=== PATIENT | female | born 1960 | race Asian ===

== ENCOUNTER 2022-09-26 11:17 | Outpatient (CLI) | payer BC, SELFPAY ==
--- NOTE | 2022-09-26 11:30 | CRLHL7_ITS ---
For Patients: As a result of the Century Cures Act, medical imaging exams and procedure reports are released immediately into your electronic medical record. You may view this report before your referring provider. If you have questions, please contact your health care provider. BILATERAL SCREENING MAMMOGRAM WITH COMPUTER-AIDED DETECTION AND TOMOSYNTHESIS TECHNIQUE: CC and MLO views were obtained. These mammographic images have been obtained using full-field digital technique. These mammographic images were interpreted with the benefit of computer-aided detection. Breast Tomosynthesis was used in this interpretation. COMPARISON FILM: 02/04/21, 01/23/20, 01/16/19. FINDINGS: The breasts are extremely dense, which lowers the sensitivity of mammography. IMPRESSION: There is no radiographic evidence for malignancy. ASSESSMENT: BI-RADS Category 2: Benign RECOMMENDATION: Routine screening mammogram in 1 year. A lay language report of this examination will be provided to the patient. Haroldo Dia M.D. Diagnostic Radiologist [email or web address] Transcribed: 12:59 p.m. PT/Dictated by: Haroldo Dia MD @ 09/27/2022 11:58:00 AM (Electronically Signed)
== END 2022-09-26 11:18 | disposition home or self-care (01) ==
LOC: MAMMO 11:18
PROVIDERS: PCP Internal Medicine; Visit Provider Internal Medicine
DX: Z12.31 Encounter for screening mammogram for malignant neoplasm of breast (principal); R92.2 Inconclusive mammogram
CPT/HCPCS: 77063; 77067

== ENCOUNTER 2022-09-28 08:50 | Outpatient (CLI) | payer BC, SELFPAY | END 2022-09-28 08:51 | disposition home or self-care (01) | LOC: NFLDREF 20:45 | PROVIDERS: PCP Internal Medicine; Referring Provider Internal Medicine; Visit Provider Internal Medicine | DX: E78.5 Hyperlipidemia, unspecified (principal); Z13.89 Encounter for screening for other disorder | CPT/HCPCS: 80061; 87086 ==

== ENCOUNTER 2022-10-10 08:31 | Outpatient (CLI) | payer BC, SELFPAY | END 2022-10-10 08:32 | disposition home or self-care (01) | LOC: NFLDREF 08:33 | PROVIDERS: PCP Internal Medicine; Visit Provider Internal Medicine | DX: Z00.00 Encounter for general adult medical examination without abnormal findings (principal); E78.9 Disorder of lipoprotein metabolism, unspecified; E78.5 Hyperlipidemia, unspecified; C91.10 Chronic lymphocytic leukemia of B-cell type not having achieved remission; M81.0 Age-related osteoporosis without current pathological fracture | CPT/HCPCS: 82306 ==

== ENCOUNTER 2023-11-27 10:05 | Outpatient (CLI) | payer BC, SELFPAY ==
--- OUTSIDE RECORDS SUMMARY | 2023-11-27 10:10 | XMS_ITS | Encounter Summary ---
Author Organization [facility] Address [address] [place] [address] Care Team Providers Care Timing Adjuster Name Role Phone Elsewhere, Pcp Primary Care Provider Unavailabl e Reason for Referral * Outpatient (Routine) - Authorized Specialty Diagnoses / Procedures Referred By Contac t Referred To Contact Hematology Oncology Elbert Keenan M.B.B.S. [address] [place] [phone] [facility] Referral ID Status Reason Start Date Expiration Date V isits Requested Visits Authorized [id number] Authorized 11/20/2023 05/21/2025 1 1 Reason for Visit * Outpatient (Routine) - Closed Specialty Diagnoses / Procedures Referred By Contac t Referred To Contact Hematology Oncology Elbert Keenan M.B.B.S. [address] [place] [phone] [facility] Referral ID Status Reason Start Date Expiration Date Visits Re quested Visits Authorized [id number] Closed 07/10/2023 07/09/2026 1 1 Encounter Details Date Type Department Care Team ([facility] st Contact Info) Description 11/20/2023 2:30 PM CDT Office Visit Division of Hematology in [place], [place] [address] [place] [phone] Elbert Keenan M.B.B.S. 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 No 02/05/2023 Within the last year, have y ou been humiliated or emotionally abused in other ways by your partner or ex-partner? No Within the last year, have y ou been kicked, hit, slapped, or otherwise physically hurt by your partner or ex-partner? No 02/05/2023 Within the last year, have y ou been raped or forced to have any kind of sexual activity by your partner or ex-partner? No 02/05/2023 Social Connection and Isolat ion Panel [NHANES] Answer Date Recorded In a typical week, how many times do you talk on the phone with family, friends, or neighbors? More than three times a week 05/03/2021 How often do you get togethe r with friends or relatives? Patient declined 05/03/2021 How often do you attend chur or islam services? Never 05/03/2021 Do you belong to any clubs o r organizations such as advent groups, unions, fraternal or athletic groups, or school groups? No 05/03/2021 How often do you attend meet ings of the clubs or organizations you belong to? Never 05/03/2021 Are you , , di vorced, , never , or living with a partner? 05/03/2021 AUDIT-C Answer Date Recorded Q1: How often do you have a drink containing alc ohol? 2-4 times a month 05/03/2021 Q2: How many drinks containi ng alcohol do you have on a typical day when you are drinking? 1 or 2 05/03/2021 Q3: How often do you have si x or more drinks on one occasion? Never 05/03/2021 Overall Financial Resource Strain (CARDIA) Answe r Date Recorded How hard is it for you to pa y for the very basics like food, housing, medical care, and heating? Not hard at all 02/05/2023 PHQ-2 Answer Date Recorded PHQ-2 Score 0 02/13/2019 [facility] [place] [facility] Occupat ional Health - Occupational Stress Questionnaire Answer Date Recorded Do you feel stress - tense, restless, nervous, or anxious, or unable to sleep at night because your mind is troubled all the time - these days? Only a little 05/03/2021 Exercise Vital Sign Answer Date Recorde d On average, how many days pe r week do you engage in moderate to strenuous exercise (like a brisk walk)? 5 days 02/05/2023 On average, how many minutes do you engage in exercise at this level? 30 min 02/05/2023 Hunger Vital Sign Answer Date Recorded Within the past 12 months, y ou worried that your food would run out before you got the money to buy more. Never true 02/06/20 23 Within the past 12 months, t he food you bought just didn't last and you didn't have money to get more. Never true 02/05/2023 PRAPARE - Transportation Answer Date Re corded In the past 12 months, has l ack of transportation kept you from medical appointments or from getting medications? No 01/23 In the past 12 months, has l ack of transportation kept you from meetings, work, or from getting things needed for daily living? No 02/05/2023 Nutrition Answer Date Recorded On average, how many serving s of fruits and vegetables do you eat per day (serving size is equal to 1 cup or approximately the size of a tennis ball)? 3-5 02/05/2023 Dental Answer Date Recorded Dental: Regular Dentist Yes 06/22/20 Employment Answer Date Recorded Employment status Retired 02/05/2023 Housing Stability Answer Date Recorded What is your living situation today? I have a [facility] place to live 02/05/2023 Education Answer Date Recorded What is the highest level of school you have completed or the highest degree you have received? 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, [employer]) 02/10/2019 Sex and Gender Information Value Date Recorded Sex Assigned at Female 12/11/2017 12:03 PM CDT Gender Identity Female 12/11/2017 12:03 PM CDT Sexual Orientation Straight 12/11/2017 12 :03 PM CDT documented as of this encounter Last Filed Vital Signs Vital Sign Reading Time Taken Comments Blood Pressure 180/82 11/20/2023 2:22 PM CDT Pulse 92 11/20/2023 2:22 PM CDT Temperature 36.2 ??C (97.2 ??F) 11/20/2023 2:22 PM CD T Respiratory Rate - - Oxygen Saturation - - Inhaled Oxygen Concentration - - Weight 43.5 kg (95 lb 12.6 oz) 11/20/2023 2:22 P M CDT Height 152.9 cm (5' 0.2) 11/20/2023 2:22 PM CDT Body Mass Index 18.59 11/20/2023 2:22 PM CDT documented in this encounter Progress Notes * Elbert Keenan M.B.B.S. 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 CBC: Hemoglobin of 12.0, WBC 13.5 with 61% lymphocytes, platelets 247,000. Prior CBC in July 2008 was normal. January 2010 - Endometriosis evaluation at [facility]. CBC: Hemoglobin 13.0, WBC 14.2with 68% lymphocytes, platelets 231,000. February 07, 2010 - CT: Multiple soft tissue masses in the mesentery, retrocrural, retroperitoneal, and periportal regions--endometrial implants versus adenopathy. Mixed density lesions in bilateral adnexa left greater than right. February 17, 2010 - Flow cytometry: Clonal population of lymphocytes that were CD5+, CD23+, CD19+, and CD45+. Dim CD38, CD79b, and kappa light chains. CD38 dim and CD49d negative. February 25, 2010 - FISH: 11q- (47%) and 13q- (20%). ZAP-70 positive (29%). IgVH: Unmutated. April 19, 2010 - Hysteroscopy, exploratory laparotomy, bilateral salpingo oophorectomy, adhesiolysis, and ablation of endometriosis implants. Pathology: Bilateral endometrioid/ovarian adenofibromas(left 4.2 cm and right 2.8 cm). Also benign cervical and endometrial polyps. December 10, 2013 - Progressive CLL meeting criteria for treatment. ECOG 1912 consent signed. February 18, 2014 - Ibrutinib/Rituxan started (E1912). August 2018: She developed worsening lymphocytosis, with testing revealing the presence of BTK mutation. With this asymptomatic disease progression, she continued with ibrutinib. April 2021: Total WBC count increased to 91.2, hemoglobin was down to 10.8, and the platelet count was 210. Repeat assessment of the disease process showed worsening lymphadenopathy, and a repeat bone marrow aspirate and biopsy showed 90% involvement by CLL. CLL fish showed the presence of deletion 11q and deletion 13q; there was no TP53 mutation noted. She started therapy with venetoclax and obinutuzumab. She continued with ibrutinib overlap until July 13, 2021. INTERVAL HISTORY The patient returns to the clinic today with her . She reports that she spent approximately 2 months in [facility] [place]. She thankfully had no major infectious complications or other medical problemsduring this visit. He has no other symptoms to offer. Specifically, she denies any major infections, she was not hospitalized for any reason. OBJECTIVE Vitals: 11/20/23 1422 BP: (!) 180/82 Pulse: 92 Temp: 36.2 ??C Height: 152.9 cm Weight: 43.5 kg Body surface area is 1.36 meters squared. Current Outpatient Medications: alendronate (FOSAMAX) 70 mg tablet, Take 70 mg by mouth once a week., Disp: , Rfl: CALCIUM CARB/VIT D3/MINERALS (CALCIUM-VITAMIN D ORAL), Take 1 Dose by mouth daily. Calcium 1200mg +Vitamin D 800 IU, Disp: , Rfl: multivitamin capsule, Take 1 capsule by mouth daily., Disp: , Rfl: simvastatin (ZOCOR) 20 mg tablet, Take 20 mg by mouth at bedtime., Disp: , Rfl: valACYclovir (VALTREX) 1000 mg tablet, TAKE ONE TABLET BY MOUTH ONCE DAILY, Disp: 90 tablet, Rfl: 3 PHYSICAL EXAM General: ECOG performance status 0. Lymph node survey: No lymphadenopathy. Abdomen: No organomegaly. Lower extremities: No pedal edema. 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 Based on the patient's history, physical examination, laboratory parameters, she continues to be in a complete clinical remission at this time. I am very happy to see this. We will continue with monitoring the disease process every 4 months going forward. She knows thatshe can contact us anytime sooner with questions. #2 Supportive care for CLL She was seen by Dermatology locally recently. She also continues to see her primary care physician for the rest of her health care preventative needs. The patient is on valacyclovir at this time; I discussed that it would be reasonable for her to stop it 6 months have having completed her venetoclax treatment, that is in December 2023. 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) Expected: 03/22/2024 (Approximate), Expires: 02/19/2025 Creatinine with Estimated GFR Lab Routine 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) Expected: 03/22/2024 (Approximate), Expires: 02/19/2025 LD (Lactate Dehydrogenase) Lab Routine 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) Expected: 03/22/2024 (Approximate), Expires: 02/19/2025 Reticulocytes Lab Routine 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) Expected: 03/22/2024 (Approximate), Expires: 02/19/2025 Immunoglobulin G (IgG) Lab Routine 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) Expected: 03/22/2024 (Approximate), Expires: 02/19/2025 Scheduled Referrals Name Type Priority Associated Diagnoses Order Schedule Hematology office visit (clinic) [facility]; CLL; General Outpatient Referral Routine Expected: 03/22/2024 (Approximate), Expires: 02/19/2025 documented as of this encounter Visit Diagnoses Diagnosis 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
--- OUTSIDE RECORDS SUMMARY | 2023-11-27 10:10 | XMS_ITS | Encounter Summary ---
Author Organization [facility] Address [address] [place] [address] Care Team Providers Care Dining Room Supervisor Name Role Phone Unavailable Primary Care Provider Unavailabl e Encounter Details Date Type Department Care Team (Late st Contact Info) Description 10/11/2023 Specialty Pharmacy [facility] [address] [place] [phone] Brandy Kendrick, Pharm.D., R.Ph. [address] [place] [phone] Social History Tobacco Use Types Packs/Day Years Used Date Smoking Tobacco: Never Smokeless Tobacco: Never Alcohol Use Standard Drinks/Week Comments Yes 0 (1 standard drink = 0.6 oz pur e alcohol) Humiliation, Afraid, Rape, and Kick questionnair e [...] How often do you attend chur or shinto services? Never 05/03/2021 Do you belong to any clubs o r organizations such as christianity groups, unions, fraternal or athletic groups, or [...] Answer Date Recorded PHQ-2 Score 0 02/13/2019 [facility] of Occupat ional Health - Occupational Stress [...] money to buy more. Never true 02/06/20 Within the past 12 months, t he [...] your living situation today? I have a [facility] place to live 02/05/2023 Education Answer Date Recorded What is the highest level of school you have completed or the highest degree you have received? 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 - 10/11/2023 1:08 PM CDT [facility] Pharm[facility] service discontinued at this time. documented in this encounter Plan of Treatment Not on file documented as of this encounter Visit Diagnoses Not on filedocumented in this encounter Additional Health Concerns Infection Onset Date Last Indicated Resolved Time Protective Environment 09/29/2022 09/29/2022 Assessment Noted Time PHQ-9 Depression Total Score: 0 02/14/20 10:24 AM CDT documented as of this encounter
--- OUTSIDE RECORDS SUMMARY | 2023-11-27 10:10 | XMS_ITS | Clinical Summary ---
Author Organization [facility] Address [address] [place] [address] Care Team Providers Care Tub Wash Operator Name Role Phone Elsewhere, Pcp Primary Care Provider Unavailabl e Source Comments Patient records contain information from all sites at [facility]. For routine questions regarding patient records, call [phone] during business hours, M-F 8:00 AM - 5:00 PM Central Time. Record requests for emergency care only can be directed to [phone] at any time.[facility] Allergies No known active allergies Medications Medication Sig Dispensed Refills Start Date End Date Status CALCIUM CARB/VIT D3/MINERALS (CALCIUM-VITAMIN D ORAL) Take 1 Dose by mouth daily. Calcium 1200mg + Vitamin D 800 IU 10/28/2015 Active multivitamin capsule Take 1 capsule by mouth daily. Active alendronate (FOSAMAX) 70 mg tablet Take 70 mg by mouth once a week. 10/10/2022 Active simvastatin (ZOCOR) 20 mg tablet Take 20 mg by mouth at bedtime. 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 Take with a meal and water at the same time each day. Swallow whole, do not chew, crush, or break. 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 09/04/2023 9:50 AM CDT - 09/04/2023 11:59 PM CDT Hospital Encounter Department of Laboratory Medicine in [address] [address] Elbert Keenan M.B.B.S. 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) Discharge Disposition: Home or Self Care from Last 3 Months Immunizations Name Administration Dates Next Due Influenza Split 04/01/2012 Influenza, Injectable, Mdck, Preservative Free, Quadrivalent 05/13/2021,05/02/2018 Influenza, Unspecified 03/16/2009 RZV (SHINGRIX) 08/21/2018,03/07/2018 SARS-COV-2 (COVID-19) - MODERNA(Discontinued) 05/05/2021 Tdap 10/10/2022,01/26/2010 influenza vaccine quad (FLUZONE/FLUARIX) (6 months and older)(PF) 04/24/2023,05/03/2022,03/09/2020,2018,03/25/2013,04/04/2012,03/27/2011,0 03/21/2010 Family History Medical History Relation Name Comments Hyperlipidemia Brother Maverick Walton Coronary artery disease Father Gamaliel Walton Dementia Father Gamaliel Walton Hyperlipidemia Father Gamaliel Walton Hypertension Father Gamaliel Walton Clotting disorder Mother pawan walton Rheum arthritis Mother pawan walton Breast cancer Mother's Sister 1 Alysa Sansaya Lymphoma Mother's Sister 2 Lisa Usy Rheum arthritis Mother's Sister 3 Connie Gregoria Relation Name Status Comments Brother Maverick Walton Father Gamaliel Walton Mother sida saundra Mother's Sister 1 Alysa Sansaya Mother's Sister 2 Lisa Usy Mother's Sister 3 Connie Gregoria Social History Tobacco Use Types Packs/Day Years Used Date Smoking Tobacco: Never Passive Smoke Exposure: Never Smokeless Tobacco: Never Tobacco Cessation:Counseling Given: No Alcohol Use Standard Drinks/Week Comments Yes 0 [...] 05/03/2021 How often do you attend chur ch or faith services? Never 05/03/2021 Do you belong to any clubs o r organizations such as hoahaoism groups, unions, fraternal or athletic groups, or [...] Answer Date Recorded PHQ-2 Score 0 02/13/2019 [facility] - Occupational Stress [...] your living situation today? I have a [facility] place to live 02/05/2023 Education Answer Date Recorded What is the highest level of school you have completed or the highest degree you have received? 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 Concentration - - Weight 43.5 kg (95 lb 12.6 oz) 11/20/2023 2:22 P M CDT Height 152.9 cm (5' 0.2) 11/20/2023 2:22 PM CDT Body Mass Index 18.59 11/20/2023 2:22 PM CDT Plan of Treatment Health Maintenance Due Date Last Done Comments CT Colonography 1958 Cologuard 1958 FIT 1958 Pneumococcal vaccine (0-64 years) (1 of 2 - PCV) 1964 Mammogram 10/23/2017 10/23/2016 (Perf ormed elsewhere), 11/09/2015 (Performed elsewhere), 06/25/2015 (Performed elsewhere) Colonoscopy 06/25/2018 06/25/2008 (Perf ormed elsewhere) Colorectal Cancer Screening 06/25/2018 Cervical Cancer Screening 09/20/20192016 (Performed elsewhere) Lipid (Cholesterol) Screening 09/19/2021 09/19/2016 (Performed elsewhere) COVID-19 Vaccine ( season) 2023 03/19/2022, 05/05/2021, 10/08/2020, Additional history exists Depression Screening (Annual PHQ-2) 06/25/2023 Office Visit for Blood Pressure Check / Re-check 02/20/2024 11/20/2023 Fasting Glucose for Diabetes Screening 10/03/2024 10/03/2021, 09/05/2021, 08/08/2021, Additional history exists DTaP,Tdap,and Td Vaccines (3 - Td or Tdap) 10/10/2032 10/10/2022, 01/26/2010 Zoster Vaccines Completed 08/21/2018, 03/07/2018 Influenza Vaccine Completed 04/24/2023, , 05/13/2021, Additional history exists HPV Vaccines Aged Out No longer eligi ble based on patient's age to complete this topic Procedures Procedure Name Priority Date/Time Associated Diagnosis Comments IMMUNOGLOBULIN G (IGG), S Routine 11/16/2023 9:51 AM CDT 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) RETICULOCYTES, B Routine 11/16/2023 9:51 AM CDT 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) LACTATE DEHYDROGENASE (LD), S Routine 11/16/2023 9:51 AM CDT 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) CREATININE WITH EGFR, S/P Routine 11/16/2023 9:51 AM CDT 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) CBC WITH DIFFERENTIAL, B Routine 024 9:51 AM CDT 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) BILIRUBIN, TOT, S/P Routine 11/16/2023 9 :51 AM CDT 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) ASPARTATE AMINOTRANSFERASE (AST), S/P Routine 11/16/2023 9:51 AM CDT 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) ALKALINE PHOSPHATASE, S/P Routine 11/16/2023 9:51 AM CDT 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) CBC WITH DIFFERENTIAL, B Routine 024 9:59 AM CDT 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) COMPREHENSIVE METABOLIC PANEL, S/P Routine 10/03/2021 10:02 AM CDT 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) from Last 3 Months or Most Recently Relevant to Health Maintenance Results * Reticulocytes (11/16/2023 9:51 AM CDT) Reticulocytes, B 0.84 0.60 - 2.71 % 11/16/2023 1:13 PM CDT RDWG Absolute Reticulocyte 36.0 30.4 - 110.9 x10(9)/L 11/16/2023 1:13 PM CDT R[facility] Blood (Blood, Venous) 11/16/2023 9:51 AM CDT 11/16/2023 12:39 PM CDT Elbert Barrera LAB BLOOD ADD-O N [facility] [address] [place] [address], [facility] RDW[facility] [place] [address] [place] [address] * (ABNORMAL) CBC with Differential, Blood (11/16/2023 9:51 AM CDT) Only the most recent of2 resultswithin the time period is included. Hemoglobin 13.5 11.6 - 15.0 g/dL 11/16/2023 9:56 AM CDT CNFL Hematocrit 39.4 35.5 - 44.9 % 11/16/2023 9:56 AM CDT CNFL Erythrocytes 4.37 3.92 - 5.13 x10(12)/L 11/16/2023 9:56 AM CDT CNFL MCV 90.2 78.2 - 97.9 fL 11/16/2023 9:56 AM CDT CNFL RBC Distrib Width 10.9(L) 12.2 - 16.1 % 11/16/2023 9:56 AM CDT CNFL Platelet Count 162 157 - 371 x10(9)/L 11/16/2023 9:56 AM CDT CNFL Leukocytes 4.8 3.4 - 9.6 x10(9)/L 11/16/2023 9:56 AM CDT CNFL Neutrophils 2.90 1.56 - 6.45 x10(9)/L 11/16/2023 9:56 AM CDT CNFL Lymphocytes 1.46 0.95 - 3.07 x10(9)/L 11/16/2023 9:56 AM CDT CNFL Monocytes 0.39 0.26 - 0.81 x10(9)/L 11/16/2023 9:56 AM CDT CNFL Eosinophils 0.05 0.03 - 0.48 x10(9)/L 11/16/2023 9:56 AM CDT CNFL Basophils <0.04 0.01 - 0.08 x10(9)/L 11/16/2023 9:56 AM CDT CNFL Blood (Blood, Venous) 11/16/2023 9:51 AM CDT 11/16/2023 9:52 AM CDT Elbert EscobedoS. [place] [address], [place] [address] * AST (Aspartate Aminotransferase) (11/16/2023 9:51 AM CDT) Aspartate Aminotransferase (AST), P 30 8 - 43 U/L 11/16/2023 10:15 AM CDT CNFL Blood (Blood, Venous) 11/16/2023 9:51 AM CDT 11/16/2023 9:52 AM CDT Elbert EscobedoSRiccardo LAB BLOOD ADD-O N Performing Organization Address City/[facility]/[place] [address], [place] [address] * Alkaline Phosphatase (11/16/2023 9:51 AM CDT) Alkaline Phosphatase, P 58 35 - 104 U/L 11/16/2023 10:15 AM CDT CNFL Blood (Blood, Venous) 11/16/2023 9:51 AM CDT 11/16/2023 9:52 AM CDT Elbert EscobedoS. [place] [address], [place] [address] * (ABNORMAL) LD (Lactate Dehydrogenase) (11/16/2023 9:51 AM CDT) Lactate Dehydrogenase (LD), P 244(H) 122 - 222 U/L 11/16/2023 1:20 PM CDT R[facility] Blood (Blood, Venous) 11/16/2023 9:51 AM CDT 11/16/2023 12:39 PM CDT Elbert Barrera LAB BLOOD NON A DD-ON Performing Organization Address City/[facility]/ZIP Co de Phone Number [facility] [address] [place] [address], [facility] RDWG [facility] [place] [address] [place] [phone] * (ABNORMAL) Immunoglobulin G (IgG) (11/16/2023 9:51 AM CDT) Immunoglobulin G (IgG), S 373(L) 767 - 1590 mg/dL 11/20/2023 8:39 AM CDT ECLR Blood (Blood, Venous) 11/16/2023 9:51 AM CDT 11/16/2023 2:33 PM CDT Elbert Barrera LAB BLOOD ADD-O N Performing Organization Address City/[facility]/ZIP Co de Phone Number [facility] [address] [place] [address] ECLR [facility] [place] [address] * Creatinine with Estimated GFR (11/16/2023 9:51 AM CDT) Creatinine 0.77 0.59 - 1.04 mg/dL 11/16/2023 10:15 AM CDT CNFL Estimated GFR (eGFR) 86 >=60 mL/min/BSA 11/16/2023 10:15 AM CDT CNFL Comment: Estimated GFR calculated using the 2020 CKD_EPI creatinine equation. Blood (Blood, Venous) 11/16/2023 9:51 AM CDT 11/16/2023 9:52 AM CDT Elbert Barrera [place] [address], [facility] [place] [address] * Bilirubin, Total (11/16/2023 9:51 AM CDT) Bilirubin, Total, P 0.5 0.0 - 1.2 mg/dL 11/16/2023 10:15 AM CDT CNFL Blood (Blood, Venous) 11/16/2023 9:51 AM CDT 11/16/2023 9:52 AM CDT Elbert Barrera LAB BLOOD ADD-O N Performing Organization Address [facility]/ZIP Co de Phone Number [address] [address], [place] [address] * Comprehensive Metabolic Panel (10/03/2021 10:02 AM CDT) Potassium, P 4.4 3.6 - 5.2 mmol/L 10/03/2021 10:52 AM CDT CNFL Sodium, P 136 135 - 145 mmol/L 10/03/2021 10:52 AM CDT CNFL Chloride, P 101 98 - 107 mmol/L 10/03/2021 10:52 AM CDT CNFL Bicarbonate, P 23 22 - 29 mmol/L 10/03/2021 10:52 AM CDT CNFL Anion Gap, P 12 7 - 15 10/03/2021 10:52 AM CDT CNFL BUN (Blood Urea Nitrogen), P 16 6 - 21 mg/dL 10/03/2021 10:52 AM CDT CNFL Creatinine 0.84 0.59 - 1.04 mg/dL 10/03/2021 10:52 AM CDT CNFL eGFR-Black/ 86 >=60 mL/min/BS A 10/03/2021 10:52 AM CDT CNFL Comment: ----ADDITIONAL INFORMATION---- Estimated GFR calculated using the 2009 CKD_EPI creatinine equation. eGFR Non-Black/ 75 >=60 mL/min/BS A 10/03/2021 10:52 AM CDT CNFL Comment: ----ADDITIONAL INFORMATION---- Estimated GFR calculated using the 2009 CKD_EPI creatinine equation. Calcium, Total, P 9.4 8.8 - 10.2 mg/dL 10/03/2021 10:52 AM CDT CNFL Glucose, P 88 70 - 140 mg/dL 10/03/2021 10:52 AM CDT CNFL Protein, Total, P 6.5 6.3 - 7.9 g/dL 10/03/2021 10:52 AM CDT CNFL Albumin, P 4.3 3.5 - 5.0 g/dL 10/03/2021 10:52 AM CDT CNFL Aspartate Aminotransferase (AST), P 29 8 - 43 U/L 10/03/2021 10:52 AM CDT CNFL Alkaline Phosphatase, P 79 35 - 104 U/L 10/03/2021 10:52 AM CDT CNFL Alanine Aminotransferase (ALT), P 27 7 - 45 U/L 10/03/2021 10:52 AM CDT CNFL Bilirubin, Total, P 0.4 <=1.2 mg/dL 10/03/2021 10:52 AM CDT CNFL Blood (Blood, Venous) 10/03/2021 10:02 AM CDT 10/03/2021 10:03 AM CDT Layla Espinal P.A.-C., M.S. LAB BLOOD ADD-ON [facility] [address] [place] [address], [facility] CNFL [facility] in [address] [address] from Last 3 Months or Most Recently Relevant to Health Maintenance Additional Health Concerns Infection Onset Date Last Indicated Protective Environment 09/29/2022 3 Advance Directives For more information, please contact: [phone] Documents on File Type Date Recorded Patient Field Contact Technician Expl anation Advance Directives 07/15/2019 2:44 PM Heal th Care Directive Advance Directives 04/19/2010 12:00 AM Lauren glover document. See document viewer. Healthcare Agents on File Name Relationship Healthcare Agent Relationshi p Communication Zach Palencia Spouse Health Care Agent Haroldo Palencia First Alternate Health Care Agent Nish Palencia Second Alternate Health Care Agent Care Teams Tub Wash Operator Relationship Specialty Start Date End Date Elsewhere, Pcp PCP - General Internal Medicine 11/16/23
--- OUTSIDE RECORDS SUMMARY | 2023-11-27 10:10 | XMS_ITS | Referral Summary ---
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 For routine questions regarding patient records, call [phone] during business hours, M-F 8:00 AM - 5:00 PM Central Time. Record requests for emergency care only can be directed to [phone] at any time.[facility] Encounters Date Type Department Care Team Description 11/20/2023 2:30 PM CDT Office Visit Division of Hematology in [place], [place] [address] [place] [phone] Elbert Keenan M.B.B.S. 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 09/04/2023 9:50 AM CDT - 09/04/2023 11:59 PM CDT Hospital Encounter Department of Laboratory Medicine in [address] [phone] Elbert Keenan M.B.B.S. 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) Discharge Disposition: Home or Self Care from Last 3 Months Allergies No known active allergies Medications Medication [...] Date Anemia In Neoplastic Disease 07/12/2021 02/07/2023 Immunizations Name Administration Dates Next Due Influenza Split 04/01/2012 Influenza, Injectable, Mdck, Preservative Free, Quadrivalent 05/13/2021,05/02/2018 Influenza, Unspecified 03/16/2009 RZV (SHINGRIX) 08/21/2018,03/07/2018 SARS-COV-2 (COVID-19) - MODERNA(Discontinued) 05/05/2021 Tdap 10/10/2022,01/26/2010 influenza vaccine quad (FLUZONE/FLUARIX) (6 months and older)(PF) 04/24/2023,05/03/2022,03/09/2020,2018,03/25/2013,04/04/2012,03/27/2011,0 03/21/2010 Social History Tobacco Use Types Packs/Day Years [...] How often do you attend chur or mormonism services? Never 05/03/2021 Do you belong to any clubs o r organizations such as lutheran groups, unions, fraternal or athletic groups, or [...] Answer Date Recorded PHQ-2 Score 0 02/13/2019 [facility] - Occupational Stress Questionnaire Answer Date Recorded [...] your living situation today? I have a [facility] place to live 02/05/2023 Education Answer Date Recorded What is the highest level of school you have completed or the highest degree you have received? 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 Concentration - - Weight 43.5 kg (95 lb 12.6 oz) 11/20/2023 2:22 P M CDT Height 152.9 cm (5' 0.2) 11/20/2023 2:22 PM CDT Body Mass Index 18.59 11/20/2023 2:22 PM CDT Plan of Treatment Not on file Procedures Procedure Name Priority Date/Time Associated Diagnosis [...] CDT Elbert Barrera LAB BLOOD ADD-O N [facility] [address] [place] [address], [facility] RDWG [facility] in [place] [address] [place] [address] * (ABNORMAL) CBC with Differential, Blood (11/16/2023 [...] CDT Elbert Barrera [place] [address], [place] [address] * AST (Aspartate Aminotransferase) (11/16/2023 9:51 AM CDT) Aspartate Aminotransferase (AST), P 30 8 - 43 U/L 11/16/2023 10:15 AM CDT CNFL Blood (Blood, Venous) 11/16/2023 9:51 AM CDT 11/16/2023 9:52 AM CDT Elbert EscobedoSRiccardo LAB BLOOD ADD-O N Performing Organization Address City/[facility]/[place] [address], [place] [address] * Alkaline Phosphatase (11/16/2023 9:51 AM CDT) Alkaline Phosphatase, P 58 35 - 104 U/L 11/16/2023 10:15 AM CDT CNFL Blood (Blood, Venous) 11/16/2023 9:51 AM CDT 11/16/2023 9:52 AM CDT Elbert EscobedoSRiccardo [place] [address], [place] [address] * (ABNORMAL) LD (Lactate Dehydrogenase) (11/16/2023 9:51 AM CDT) Lactate Dehydrogenase (LD), P 244(H) 122 - 222 U/L 11/16/2023 1:20 PM CDT RDWG Blood (Blood, Venous) 11/16/2023 9:51 AM CDT 11/16/2023 12:39 PM CDT Elbert Barrera LAB BLOOD NON A DD-ON Performing Organization Address City/[facility]/ZIP Co de Phone Number [facility] [address] [place] [address], [facility] RDWG [facility] in [place] [address] [place] [phone] * (ABNORMAL) Immunoglobulin G (IgG) (11/16/2023 9:51 AM CDT) Immunoglobulin G (IgG), S 373(L) 767 - 1590 mg/dL 11/20/2023 8:39 AM CDT ECLR Blood (Blood, Venous) 11/16/2023 9:51 AM CDT 11/16/2023 2:33 PM CDT Elbert Barrera LAB BLOOD ADD-O N Performing Organization Address City/[facility] Co de Phone Number [facility] [address] [place] [address], [facility] ECLR [facility] [address] * Creatinine with Estimated GFR (11/16/2023 9:51 AM CDT) Creatinine 0.77 0.59 - 1.04 mg/dL 11/16/2023 10:15 AM CDT CNFL Estimated GFR (eGFR) 86 >=60 mL/min/BSA 11/16/2023 10:15 AM CDT CNFL Comment: Estimated GFR calculated using the 2020 CKD_EPI creatinine equation. Blood (Blood, Venous) 11/16/2023 9:51 AM CDT 11/16/2023 9:52 AM CDT Elbert Barrera [place] [address], [place] [address] * Bilirubin, Total (11/16/2023 9:51 AM CDT) Bilirubin, Total, P 0.5 0.0 - 1.2 mg/dL 11/16/2023 10:15 AM CDT CNFL Blood (Blood, Venous) 11/16/2023 9:51 AM CDT 11/16/2023 9:52 AM CDT Elbert Barrera LAB BLOOD ADD-O N Performing Organization Address [facility]/ZIP Co de Phone Number [address] [address], [place] [address] * Comprehensive Metabolic Panel (10/03/2021 10:02 AM [...] Layla Espinal P.A.-C., M.S. 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 See document viewer. Healthcare Agents on File Name Relationship Healthcare Agent Relationshi p Communication Zach Palencia Spouse Health Care Agent Haroldo Palencia First Alternate Health Care Agent Nish Palencia Second Alternate Health Care Agent Care Teams Prison Librarian Relationship Specialty Start Date End Date Elsewhere, Pcp PCP - General Internal Medicine 11/16/23
--- OUTSIDE RECORDS SUMMARY | 2023-11-27 10:10 | XMS_ITS | Encounter Summary ---
Author Organization [facility] Address [address] [place] [address] Care Team Providers Care Coupon And Bond Collection Clerk Name Role Phone Unavailable Primary Care Provider Unavailabl e Encounter Details Date Type Department Care Team (Latest Contact Info) Description 09/04/2023 9:50 AM CDT - 09/04/2023 11:59 PM CDT Hospital Encounter Department of Laboratory Medicine in [address] [phone] Elbert Keenan M.B.B.S. 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 Never 05/03/2021 Do you belong to any clubs o r organizations such as mu-ism groups, unions, fraternal or athletic groups, or [...] Answer Date Recorded PHQ-2 Score 0 02/13/2019 [facility] [place] of Occupat ional Health - Occupational Stress [...] your living situation today? I have a [facility] place to live 02/05/2023 Education Answer Date Recorded What is the highest level of school you have completed or the highest degree you have received? 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, HOME HELP AIDE, SHABBIR) 02/10/2019 Sex and Gender Information Value Date Recorded Sex Assigned at Female 12/11/2017 12:03 PM CDT Gender Identity Female 12/11/2017 12:03 PM CDT Sexual Orientation Straight 12/11/2017 12 :03 PM CDT documented as of this encounter Medications at Time of Discharge Medication Sig Dispensed Refills Start Date End Date alendronate (FOSAMAX) 70 mg tablet Take 70 mg by mouth once a week. 10/10/2022 CALCIUM CARB/VIT D3/MINERALS (CALCIUM-VITAMIN D ORAL) Take 1 Dose by mouth daily. Calcium 1200mg + Vitamin D 800 IU 10/28/2015 multivitamin capsule Take 1 capsule by mouth daily. simvastatin (ZOCOR) 20 mg tablet Take 20 mg by mouth at bedtime. 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 Take with a meal and water at the same time each day. Swallow whole, do not chew, crush, or break. 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) documented in this encounter Results * CBC with Differential, Blood (09/04/2023 9:59 AM CDT) Hemoglobin 13.9 11.6 - 15.0 g/dL 09/04/2023 10:09 AM CDT CNFL Hematocrit 40.7 35.5 - 44.9 % 09/04/2023 10:09 AM CDT CNFL Erythrocytes 4.36 3.92 - 5.13 x10(12)/L 09/04/2023 10:09 AM CDT CNFL MCV 93.3 78.2 - 97.9 fL 09/04/2023 10:09 AM CDT CNFL RBC Distrib Width 12.2 12.2 - 16.1 % 09/04/2023 10:09 AM CDT CNFL Platelet Count 192 157 - 371 x10(9)/L 09/04/2023 10:09 AM CDT CNFL Leukocytes 5.9 3.4 - 9.6 x10(9)/L 09/04/2023 10:09 AM CDT CNFL Neutrophils 3.51 1.56 - 6.45 x10(9)/L 09/04/2023 10:09 AM CDT CNFL Lymphocytes 1.76 0.95 - 3.07 x10(9)/L 09/04/2023 10:09 AM CDT CNFL Monocytes 0.55 0.26 - 0.81 x10(9)/L 09/04/2023 10:09 AM CDT CNFL Eosinophils <0.04 0.03 - 0.48 x10(9)/L 09/04/2023 10:09 AM CDT CNFL Basophils <0.04 0.01 - 0.08 x10(9)/L 09/04/2023 10:09 AM CDT CNFL Blood (Blood, Venous) 09/04/2023 9:59 AM CDT 09/04/2023 10:01 AM CDT Elbert Barrera LAB BLOOD ADD-O N Performing Organization Address City/State/[facility] Co de Phone Number [facility] [address] [place] [address], [facility] CNFL [place] [address] documented in this encounter Visit Diagnoses Diagnosis 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
--- OUTSIDE RECORDS SUMMARY | 2023-11-27 10:10 | XMS_ITS ---
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 Discontinuation of Plans with No Action >1 year-System Maintenance - Hematology / Oncology Treatment 1 Plan Name Start Date Discontinue Date Treatment Medications Discontinue Reason Plan Provider Cycles [facility] [id number] Arm A ( Ibrutinib / riTUXimab ) 02/18/2014 12/05/2018 Research IRB [id number] ibrutinib ([id number]) Progression Elbert Keenan M.B.B.S. 20 (11 of 13 cycles) started Hematology / Oncology Treatment 2 Plan Name Start Date Discontinue Date Treatment Medications Discontinue Reason Plan Provider Cycles Ibrutinib ( CLL ) 11/20/2018 08/09/2021 ibrutinib (IMBRUVICA) Progression Layla Espinal P.A.-C., M.S. 5 of 5 cycles started Infusion Therapy 1 Plan Name Start Date Discontinue Date Treatment Medications Discontinue Reason Plan Provider TIXAGEVIMAB-CILGAV IMAB (EVUSHELD) - EMERGENCY USE AUTHORIZATION 09/11/2021 10/07/2021 No medications scheduled. Therapy Complete Elbert Keenan M.B.B.S. Radiation Treatments * No radiation treatments are documented for this patient in [facility]. Treatments may have been administered in another system. Resolved Problems Problem Noted Date Diagnosed Date Resolved Date Anemia In Neoplastic Disease 07/12/2021 02/07/2023
--- OUTSIDE RECORDS SUMMARY | 2023-11-27 10:10 | XMS_ITS | Encounter Summary ---
Author Organization [facility] Address [address] [place] [address] Care Team Providers Care Pipe Wrapping Machine Operator Name Role Phone Elsewhere, Pcp Primary Care Provider Unavailabl e Reason for Visit * Reason Onset Date Comments Pre-visit Intake 11/16/2023 Encounter Details Date Type Department Care Team (Latest Contact Info) Description 11/16/2023 8:00 AM CDT Clinical Communication Virtual Review in [address] [phone] Pre-visit Intake Social History Tobacco Use Types Packs/Day Years [...] How often do you attend chur or cheondoism services? Never 05/03/2021 Do you belong to any clubs o r organizations such as adventist groups, unions, fraternal or athletic groups, or [...] Answer Date Recorded PHQ-2 Score 0 02/13/2019 [facility] of Occupat ional Health - Occupational [...] your living situation today? I have a [facility] place to live 02/05/2023 Education Answer Date Recorded What is the highest level of school you have completed or the highest degree you have received? 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, RN FACULTY, SHABBIR) 02/10/2019 Sex and Gender Information Value Date Recorded Sex Assigned at Female 12/11/2017 12:03 PM CDT Gender Identity Female 12/11/2017 12:03 PM CDT Sexual Orientation Straight 12/11/2017 12 :03 PM CDT documented as of this encounter Plan of Treatment Not on file documented as of this encounter Visit Diagnoses Not on filedocumented in this encounter Additional Health Concerns Infection Onset Date Last Indicated Resolved Time Protective Environment 09/29/2022 09/29/2022 Assessment Noted Time PHQ-9 Depression Total Score: 0 02/14/20 10:24 AM CDT documented as of this encounter Care Teams Pipe Wrapping Machine Operator Relationship Specialty Start Date End Date Elsewhere, Pcp PCP - General Internal Medicine 11/16/23 documented as of this encounter
--- OUTSIDE RECORDS SUMMARY | 2023-11-27 10:10 | XMS_ITS | Encounter Summary ---
Author Organization [facility] Address [address] [place] [address] Care Team Providers Care High School Tutor Name Role Phone Elsewhere, Pcp Primary Care Provider Unavailabl e Encounter Details Date Type Department Care Team (Latest Contact Info) Description 11/16/2023 9:36 AM CDT - 11/16/2023 11:59 PM CDT Hospital Encounter Department of Laboratory Medicine in [address] [phone] Elbert Keenan M.B.B.S. [address] [place] [address] Chronic Lymphocytic Leukemia Of B Cell Type [...] How often do you attend chur or caodaism services? Never 05/03/2021 Do you belong to any clubs o r organizations such as jainism groups, unions, fraternal or athletic groups, or [...] Answer Date Recorded PHQ-2 Score 0 02/13/2019 [facility] [place] of Occupat ional Health - Occupational Stress [...] your living situation today? I have a [facility] place to live 02/05/2023 Education Answer Date Recorded What is the highest level of school you have completed or the highest degree you have received? 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, PHYSICAL CHEMISTRY TEACHER, SHABBIR) 02/10/2019 Sex and Gender Information Value [...] at bedtime. 10/10/2022 valACYclovir (VALTREX) 1000 mg tabletIndications:Leukemi a Lymphocytic Chronic In Relapse (HCC) TAKE ONE TABLET BY MOUTH ONCE DAILY 90 tablet 3 04/24/2023 documented as of this encounter Plan of Treatment Not on file documented as of this encounter Procedures Procedure Name Priority Date/Time Associated Diagnosis Comments RETICULOCYTES, B Routine 11/16/2023 9:51 AM CDT [...] Cell Type Not Having Achieved Remission (HCC) IMMUNOGLOBULIN G (IGG), S Routine 11/16/2023 9:51 [...] (HCC) documented in this encounter Results * (ABNORMAL) Immunoglobulin G (IgG) (11/16/2023 9:51 AM CDT) Immunoglobulin G (IgG), S 373(L) 767 - 1590 mg/dL 11/20/2023 8:39 AM CDT ECLR Blood (Blood, Venous) 11/16/2023 9:51 AM CDT 11/16/2023 2:33 PM CDT Elbert Barrera LAB BLOOD ADD-O N Performing Organization Address [facility] Co de Phone Number [facility] [address] [place] [address], [facility] ECLR [place] [address] * Reticulocytes (11/16/2023 9:51 AM CDT) Reticulocytes, B 0.84 0.60 - 2.71 % 11/16/2023 1:13 PM CDT RDWG Absolute Reticulocyte 36.0 30.4 - 110.9 x10(9)/L 11/16/2023 1:13 PM CDT RDWG Blood (Blood, Venous) 11/16/2023 9:51 AM CDT 11/16/2023 12:39 PM CDT Elbert Barrera LAB BLOOD ADD-O N Performing Organization Address City/[facility] Co de Phone Number [facility] [address] [place] [address], [facility] RDWG [facility] in [address] [phone] * (ABNORMAL) LD (Lactate Dehydrogenase) (11/16/2023 9:51 AM CDT) Lactate Dehydrogenase (LD), P 244(H) 122 - 222 U/L 11/16/2023 1:20 PM CDT RDWG Blood (Blood, Venous) 11/16/2023 9:51 AM CDT 11/16/2023 12:39 PM CDT Elbert Barrera LAB BLOOD NON A DD-ON Performing Organization Address City/[facility]/ZIP Co de Phone Number [facility] [address] [place] [address], [facility] RDWG [facility] in [place] [address] [place] [address] * Creatinine with Estimated GFR (11/16/2023 9:51 AM CDT) Creatinine 0.77 0.59 - 1.04 mg/dL 11/16/2023 10:15 AM CDT CNFL Estimated GFR (eGFR) 86 >=60 mL/min/BSA 11/16/2023 10:15 AM CDT CNFL Comment: Estimated GFR calculated using the 2020 CKD_EPI creatinine equation. Blood (Blood, Venous) 11/16/2023 9:51 AM CDT 11/16/2023 9:52 AM CDT Elbert EscobedoSRiccardo LAB BLOOD ADD-O N Performing Organization Address City/[facility]/ZIP Co de Phone Number [facility] [address] [place] [address], [facility] CNFL [facility] in [address] [address] * (ABNORMAL) CBC with Differential, Blood (11/16/2023 9:51 AM CDT) Hemoglobin 13.5 11.6 - 15.0 g/dL 11/16/2023 [...] CDT Elbert Barrera [place] [address], [facility] [place] [address] * Bilirubin, Total (11/16/2023 9:51 AM CDT) Bilirubin, Total, P 0.5 0.0 - 1.2 mg/dL 11/16/2023 10:15 AM CDT CNFL Blood (Blood, Venous) 11/16/2023 9:51 AM CDT 11/16/2023 9:52 AM CDT Elbert EscobedoS. LAB BLOOD ADD-O N [facility] [address] [address], [address] [address] * AST (Aspartate Aminotransferase) (11/16/2023 9:51 AM CDT) Aspartate Aminotransferase (AST), P 30 8 - 43 U/L 11/16/2023 10:15 AM CDT CNFL Blood (Blood, Venous) 11/16/2023 9:51 AM CDT 11/16/2023 9:52 AM CDT Elbert EscobedoSRiccardo LAB BLOOD ADD-O N [address] [address], [address] [address] * Alkaline Phosphatase (11/16/2023 9:51 AM CDT) Alkaline Phosphatase, P 58 35 - 104 U/L 11/16/2023 10:15 AM CDT CNFL Blood (Blood, Venous) 11/16/2023 9:51 AM CDT 11/16/2023 9:52 AM CDT Elbert EscobedoSRiccardo LAB BLOOD ADD-O N [address] [address], [address] [address] documented in this encounter Visit Diagnoses Diagnosis 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
--- OUTSIDE RECORDS SUMMARY | 2023-11-27 10:10 | XMS_ITS ---
Author Organization [facility] Address [address] [place] [address] Care Team Providers Care Founder Chairman And Chief Creative Officer Name Role Phone Unavailable Unavailable Unavailable Surgery Details Not on file Complications Check Surgery Details section. Procedure Estimated Blood Loss Check Surgery Details section. Procedure Findings Check Surgery Details section. Procedure Specimens Taken Check Surgery Details section.
--- NOTE | 2023-11-27 10:15 | CRLHL7_ITS ---
For Patients: As a result of the Century Cures Act, medical imaging exams and procedure reports are released immediately into your electronic medical record. You may view this report before your referring provider. If you have questions, please contact your health care provider. BILATERAL SCREENING MAMMOGRAM WITH COMPUTER-AIDED DETECTION AND TOMOSYNTHESIS TECHNIQUE: CC and MLO views were obtained. These mammographic images have been obtained using full-field digital technique. These mammographic images were interpreted with the benefit of computer-aided detection. Breast Tomosynthesis was used in this interpretation. COMPARISON FILM: 09/26/22, 02/04/21, 01/23/20. FINDINGS: The breasts are heterogeneously dense, which may obscure small masses. IMPRESSION: There is no radiographic evidence for malignancy. ASSESSMENT: BI-RADS Category 2: Benign RECOMMENDATION: Routine screening mammogram in 1 year. A lay language report of this examination will be provided to the patient. Haroldo Dia M.D. Diagnostic Radiologist [email or web address] SP/Dictated by: Haroldo Dia MD @ 11/27/2023 12:25:00 PM (Electronically Signed)
== END 2023-11-27 10:06 | disposition home or self-care (01) ==
LOC: MAMMO 10:06
PROVIDERS: PCP Internal Medicine; Visit Provider Internal Medicine
DX: Z12.31 Encounter for screening mammogram for malignant neoplasm of breast (principal); R92.2 Inconclusive mammogram
CPT/HCPCS: 77063; 77067

== ENCOUNTER 2024-02-27 08:21 | Outpatient (CLI) | payer BC, SELFPAY ==
--- OUTSIDE RECORDS SUMMARY | 2024-03-02 11:54 | XMS_ITS ---
Author Organization [facility] Address [address] [place] [address] Care Team Providers Care Enamel Dipper Name Role Phone Unavailable Unavailable Unavailable Surgery Details Not on file Complications Check Surgery Details section. Procedure Estimated Blood Loss Check Surgery Details section. Procedure Findings Check Surgery Details section. Procedure Specimens Taken Check Surgery Details section.
--- OUTSIDE RECORDS SUMMARY | 2024-03-02 11:54 | XMS_ITS ---
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 Discontinuation of Plans with No Action >1 year-System Maintenance - Hematology / Oncology Treatment 1 Plan Name Start Date Discontinue Date Treatment Medications Discontinue Reason Plan Provider Cycles [facility] E1912 Arm A ( Ibrutinib / riTUXimab ) 02/18/2014 12/05/2018 Research IRB [id number] ibrutinib ([id number]) Progression Elbert Keenan M.B.B.S. 20 (11 of 13 cycles) started Hematology / Oncology Treatment 2 Plan Name Start Date Discontinue Date Treatment Medications Discontinue Reason Plan Provider Cycles Ibrutinib ( CLL ) 11/20/2018 08/09/2021 ibrutinib (Imbruvica) Progression Layla Espinal P.A.-C., M.S. 5 of 5 cycles started Infusion Therapy 1 Plan Name Start Date Discontinue Date Treatment Medications Discontinue Reason Plan Provider TIXAGEVIMAB-CILGAV IMAB (EVUSHELD) - EMERGENCY USE AUTHORIZATION 09/11/2021 10/07/2021 No medications scheduled. Therapy Complete Elbert Keenan M.B.B.S. Radiation Treatments * No radiation treatments are documented for this patient in [facility]. Treatments may have been administered in another system. Resolved Problems Problem Noted Date Diagnosed Date Resolved Date Anemia In Neoplastic Disease 07/12/2021 02/07/2023
--- OUTSIDE RECORDS SUMMARY | 2024-03-02 11:54 | XMS_ITS | Referral Summary ---
Author Organization [facility] Address [address] [place] [address] Care Team Providers Care Stone Layout Marker Name Role Phone Elsewhere, Pcp Primary Care Provider Unavailabl e Source Comments Patient records contain information from all sites at [facility]. For routine questions regarding patient records, call [phone] during business hours, M-F 8:00 AM - 5:00 PM Central Time. Record requests for emergency care only can be directed to [phone] at any time.[facility] Allergies No known active allergies Medications [...] bedtime. 10/10/2022 Active valACYclovir (VALTREX) 1000 mg tabletIndications:Radha kemia Lymphocytic Chronic In Relapse (HCC) TAKE ONE TABLET BY MOUTH ONCE DAILY 90 tablet 3 04/24/2023 Active Active Problems Problem Noted Date Diagnosed Date [...] declined 05/03/2021 How often do you attend [facility] or sikhism services? Never 05/03/2021 Do you belong to any clubs o r organizations such as baptism groups, unions, fraternal or athletic groups, or [...] Answer Date Recorded PHQ-2 Score 0 02/13/2019 [facility] of Occupat ional Health - Occupational Stress [...] your living situation today? I have a [facility] place to live 02/05/2023 Education Answer Date Recorded What is the highest level of school you have completed or the highest degree you have received? 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, MATERIALS ENGINEER, SHABBIR) 02/10/2019 Sex and Gender Information Value [...] CDT Oxygen Saturation 100% 05/11/2021 3:10 PM FILTRATION PLANT OPERATOR Inhaled Oxygen Concentration - - Weight 43.5 kg (95 lb 12.6 oz) 11/20/2023 2:22 P M CDT Height 152.9 cm (5' 0.2) 11/20/2023 2:22 PM CDT Body Mass Index 18.59 11/20/2023 2:22 PM CDT Plan of Treatment Upcoming Encounters Date Type Department Care Team (Latest Contact Info) Description 03/20/2024 9:00 AM CDT Clinical Communication Virtual Review in [address] [phone] 03/24/2024 10:00 AM CDT Appointment Department of Laboratory Medicine in [address] [phone] Elbert Keenan M.B.B.S. [address] [place] [address] 03/25/2024 2:00 PM CDT Office Visit Division of Hematology in [place], [place] [address] [place] [phone] Layla Espinal P.A.-C., M.S. 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 LAB BLOOD ADD-ON [facility] [address] [place] [address], [facility] CNFL [facility] in [address] [address] from Last 3 Months or Most Recently Relevant to Health Maintenance Advance Directives For more information, please contact: [phone] Documents on File Type Date Recorded Patient Presidential Helicopter Crew Chief Expl anation Advance Directives 07/15/2019 2:44 PM Heal th Care Directive Advance Directives 04/19/2010 12:00 AM Lauren glover document. See document viewer. Healthcare Agents on File Name Relationship Healthcare Agent Relationshi p Communication Zach Palencia [facility] Health Care Agent Haroldo Palencia [facility] Alternate Health Care Agent Nish Palencia Second Alternate Health Care Agent Care Teams Stone Layout Marker Relationship Specialty Start Date End Date Elsewhere, Pcp PCP - General Internal Medicine 11/16/23
--- OUTSIDE RECORDS SUMMARY | 2024-03-02 11:54 | XMS_ITS | Clinical Summary ---
Author Organization [facility] Address [address] [place] [address] Care Team Providers Care Director Of Oncology Name Role Phone Elsewhere, Pcp Primary Care Provider Unavailabl e Source Comments Patient records contain information from all sites at [facility]. For routine questions regarding patient records, call [phone] during business hours, M-F 8:00 AM - 5:00 PM Central Time. Record requests for emergency care only can be directed to [phone] at any time.[facility] Allergies No known active allergies Medications [...] Alysa Sansaya Lymphoma Mother's Sister 2 Lisa Gregoria Rheum arthritis Mother's Sister 3 Connie Gregoria Relation Name Status Comments Brother Maverick Walton Father Gamaliel Walton Mother sida saundra Mother's Sister 1 Alysa Sansaya Mother's Sister 2 Lisa Gregoria Mother's Sister 3 Connie Gregoria Social History [...] How often do you attend chur or rastafari services? Never 05/03/2021 Do you belong to any clubs o r organizations such as religion groups, unions, fraternal or athletic groups, or [...] Answer Date Recorded PHQ-2 Score 0 02/13/2019 [facility] - Occupational [...] your living situation today? I have a [facility] place to live 02/05/2023 Education Answer Date Recorded What is the highest level of school you have completed or the highest degree you have received? 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 [address] [place] [phone] 03/25/2024 2:00 PM CDT Office Visit Division of Hematology in [place], [place] [address] [place] [phone] Layla Espinal P.A.-C., M.S. [address] [place] [phone] Health Maintenance Due Date Last Done Comments CT Colonography 1958 Cologuard 1958 FIT 1958 Pneumococcal vaccine (65+ years) (1 of 2 - PCV) 1964 Mammogram 10/23/2017 10/23/2016 (Perf ormed elsewhere), 11/09/2015 (Performed elsewhere), 06/25/2015 (Performed elsewhere) Colonoscopy 06/25/2018 06/25/2008 (Perf ormed elsewhere) Colorectal Cancer Screening 06/25/2018 Cervical Cancer Screening 09/20/20192016 (Performed elsewhere) Depression Screening (Annual PHQ-2) 06/25/2023 Fall Risk Screen (Annual) 12/02/2023 Office Visit for Blood Pressure Check / Re-check 02/20/2024 11/20/2023 COVID-19 Vaccine ( season) 2024 03/19/2022, 05/05/2021, 10/08/2020, Additional history exists Influenza Vaccine (#1) 2024 3, 05/03/2022, 05/13/2021, Additional history exists Fasting Glucose for Diabetes Screening 10/03/2024 10/03/2021, 09/05/2021, 08/08/2021, Additional history exists DTaP,Tdap,and Td Vaccines (3 - Td or Tdap) 10/10/2032 10/10/2022, 01/26/2010 Zoster Vaccines Completed 08/21/2018, 03/07/2018 HPV Vaccines Aged Out No longer eligi [...] Layla Espinal P.A.-C., M.S. LAB BLOOD ADD-ON [facility] [address] [place] [phone], [facility] in [address] [address] from Last 3 Months or Most Recently Relevant to Health Maintenance Advance Directives For more information, please contact: [phone] Documents on File Type Date Recorded Patient Gold Leaf Gilder Expl anation Advance Directives 07/15/2019 2:44 PM Heal th Care Directive Advance Directives 04/19/2010 12:00 AM Lauren glover document. See document viewer. Healthcare Agents on File Name Relationship Healthcare Agent Relationshi p Communication Zach Palencia Spouse Health Care Agent Haroldo Palencia First Alternate Health Care Agent Nish Palencia Second Alternate Health Care Agent Care Teams Director Of Oncology Relationship Specialty Start Date End Date Elsewhere, Pcp PCP - General Internal Medicine 11/16/23
--- OUTSIDE RECORDS SUMMARY | 2024-03-02 11:54 | XMS_ITS | Encounter Summary ---
Author Organization [facility] Address [address] [place] [address] Care Team Providers Care Admiralty Lawyer Name Role Phone Elsewhere, Pcp Primary Care Provider Unavailabl e Reason for Referral * Outpatient (Routine) - Authorized Specialty Diagnoses / Procedures Referred By Contac t Referred To Contact Hematology Oncology Elbert Keenan M.B.B.S. [address] [place] [phone] [facility] Referral ID Status Reason Start Date Expiration Date V isits Requested Visits Authorized [id number] Authorized 11/20/2023 05/21/2025 1 1 Reason for Visit * Outpatient (Routine) - Closed Specialty Diagnoses / Procedures Referred By Contac t Referred To Contact Hematology Oncology Elbert Keenan M.B.B.S. [address] [place] [phone] [facility] Referral ID Status Reason Start Date Expiration Date Visits Re quested Visits Authorized [id number] Closed 07/10/2023 07/09/2026 1 1 Encounter Details Date Type Department Care Team ([facility] st Contact Info) Description 11/20/2023 2:30 PM CDT Office Visit Division of Hematology in [place], [place] [address] [place] [phone] Elbert Keenan M.B.B.S. 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 I have a [facility] place to live 02/05/2023 Education Answer Date Recorded What is the highest level of school you have completed or the highest degree you have received? 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, TOLL SETTLEMENT CLERK, SHABBIR) 02/10/2019 Sex and Gender Information Value [...] - 11/20/2023 2:30 PM CDT SUBJECTIVE Primary financial investigator: Dr. 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 CBC: Hemoglobin of 12.0, WBC 13.5 with 61% lymphocytes, platelets 247,000. Prior CBC in July 2008 was normal. January 2010 - Endometriosis evaluation at [facility]. CBC: Hemoglobin 13.0, WBC 14.2with 68% lymphocytes, [...] that she spent approximately 2 months in [place]. She thankfully had no major infectious complications [...] in December 2023. documented in this encounter Miscellaneous Notes * Addendum Note - Ciaran Elliott - 11/20/2023 2:30 PM CDTAddended by: CIARAN ELLIOTT on: 01/01/2024 02:01 PM Modules accepted: Orders documented in this encounter Plan of Treatment Upcoming Encounters Date Type Department Care Team (Latest Contact Info) Description 03/20/2024 9:00 AM CDT Clinical Communication Virtual Review in [address] [phone] 03/24/2024 10:00 AM CDT Appointment Department of Laboratory Medicine in [address] [phone] Elbert Keenan M.B.B.S. [address] [place] [phone] 03/25/2024 2:00 PM CDT Office Visit Division of Hematology in [place], [place] [address] [place] [phone] Layla Espinal P.A.-C., M.S. 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) Expected: 03/24/2024 (Approximate), Expires: 02/19/2025 Creatinine with Estimated GFR Lab Routine 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) Expected: 03/24/2024 (Approximate), Expires: 02/19/2025 Immunoglobulin G (IgG) Lab Routine 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) Expected: 03/24/2024 (Approximate), Expires: 02/19/2025 LD (Lactate Dehydrogenase) Lab Routine 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) Expected: 03/24/2024 (Approximate), Expires: 02/19/2025 Reticulocytes Lab Routine 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) Expected: 03/24/2024 (Approximate), Expires: 02/19/2025 Scheduled Referrals Name Type Priority Associated Diagnoses Order Schedule Hematology office visit (clinic) [place]; C[facility]; General Outpatient Referral Routine Expected: 03/22/2024 (Approximate), Expires: 02/19/2025 documented as of this encounter Visit Diagnoses Diagnosis 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
== END 2024-02-27 08:22 | disposition home or self-care (01) ==
PROVIDERS: PCP Internal Medicine; Referring Provider Internal Medicine; Visit Provider Internal Medicine
DX: R31.29 Other microscopic hematuria (principal); M81.0 Age-related osteoporosis without current pathological fracture; Z13.1 Encounter for screening for diabetes mellitus
CPT/HCPCS: 82306; 82947; 87086

== ENCOUNTER 2025-02-12 08:30 | Outpatient (CLI) | payer BC, SELFPAY ==
--- NOTE | 2025-02-12 08:45 | CRLHL7_ITS ---
For Patients: As a result of the Century Cures Act, medical imaging exams and procedure reports are released immediately into your electronic medical record. You may view this report before your referring provider. If you have questions, please contact your health care provider. INDICATION: BILATERAL SCREENING MAMMOGRAM, ASYMPTOMATIC 64 Y/O FEMALE COMPARISON: 11/27/2023, 09/26/2022, 02/04/2021 TECHNIQUE: Digital mammogram in CC and MLO projections including computer-aided detection (CAD) and tomosynthesis. BREAST COMPOSITION: The breasts are heterogeneously dense, which may obscure small masses. FINDINGS: No suspicious findings. ASSESSMENT: BI-RADS 1 Negative RECOMMENDATION: Annual screening mammogram. A lay language report of this examination will be provided to the patient. Dictated by: Maria Rojas MD @ 02/13/2025 22:12:06 (Electronically Signed)
== END 2025-02-12 08:31 | disposition home or self-care (01) ==
LOC: MAMMO 08:30
PROVIDERS: PCP Internal Medicine; Visit Provider Internal Medicine
DX: Z12.31 Encounter for screening mammogram for malignant neoplasm of breast (principal); R92.333 Mammographic heterogeneous density, bilateral breasts
CPT/HCPCS: 77063; 77067

== ENCOUNTER 2025-02-20 08:10 | Outpatient (CLI) | payer BC, SELFPAY | END 2025-02-20 08:11 | disposition home or self-care (01) | LOC: NFLDREF 02-24 02:58 | PROVIDERS: PCP Internal Medicine; Referring Provider Internal Medicine; Visit Provider Internal Medicine | DX: M81.0 Age-related osteoporosis without current pathological fracture (principal); E78.9 Disorder of lipoprotein metabolism, unspecified; R31.29 Other microscopic hematuria | CPT/HCPCS: 80061; 82306; 87086 ==